=== PATIENT | male | born 1955 | race Caucasian/White ===

== ENCOUNTER → 2018-11-01 | Outpatient (CLI) | payer BC ==
[2018-10-06 15:48] VITALS: BP 120/66
[~2018-11-01] MED LIST: ACET325T9 PO; CIPR500T PO; GLIM2TAB2 PO; TAMS0.4C97 PO
--- NOTE | 2018-11-01 16:42 | RAD ---
AP view of the abdomen Clinical indications: Ureteral calculus. COMPARISON: October 05, 2018. FINDINGS: Biliary stent is unchanged in position. Small punctate bilateral radiopaque renal calculi are seen. Calcifications are seen within both sides of the anatomic pelvis which were seen previously consistent with vascular calcifications. No obstructive bowel pattern is evident. Mild fecal retention is seen throughout the colon. IMPRESSION: Bilateral renal stones. Electronically signed by: Bruno Sanchez MD (11/01/2018 4:39 PM) [facility]
== END | disposition home or self-care (01) ==
LOC: RAD 10:22
PROVIDERS: ATTEND Urology
DX: N20.2 Calculus of kidney with calculus of ureter (principal); K59.00 Constipation, unspecified
CPT/HCPCS: 74018

== ENCOUNTER 2018-11-14 01:52 | Emergency (ER) | payer BC ==
[~2018-11-14] VITALS: Ht 182.9 cm; Wt 99.8 kg
[2018-11-14 02:10] LABS: BASO # 0.1 x10^3/uL (0.0-0.2); BASO % 1 % (0-3); EOS # 0.3 x10^3/uL (0.0-0.7); EOS % 3 % (0-3); HEMATOCRIT 43.1 % (39.0-53.0); HEMOGLOBIN 15.1 g/dL (13.0-17.5); LYMPH # 3.5 x10^3/uL (1.0-4.8); LYMPH % 42 % (24-48); MEAN CORPUSCULAR HEMOGLOBIN 36 pg (25-35); MEAN CORPUSCULAR HGB CONC 35 g/dL (31-37); MEAN CORPUSCULAR VOLUME 101 fL (79-100); MONO % 12 % (0-9); NEUT # 3.5 x10^3/uL (1.8-7.7); NEUT % 42 % (31-73); PLATELET COUNT 239 x10^3/uL (140-400); RED BLOOD COUNT 4.26 x10^6/uL (4.30-5.70); RED CELL DISTRIBUTION WIDTH 13.7 % (11.5-14.5); WHITE BLOOD COUNT 8.4 x10^3/uL (4.0-11.0)
--- NOTE | 2018-11-14 02:10 | PHYS DOC ---
Past Medical History Past Medical History: Diabetes-Type II Additional Past Medical Histor: Bile Duct blocked Past Surgical History: Other Additional Past Surgical Histo: bile duct stent Alcohol Use: None Drug Use: None Adult General Chief Complaint Chief Complaint: FLANK PAIN HPI HPI 63-year-old male presents to the emergency department with complaints of left flank pain. Patient's underlying history of kidney stones last stone was about one month ago. Patient describes pain as achy, stabbing at times. Denies any fever or chills. Denies any difficulty with urination. States the pain has been fairly constant. Pain started approximately 11 PM. He denies any nausea or vomiting associated with this pain. Nothing makes his pain worse, nothing makes his pain better. Review of Systems Review of Systems Constitutional: Denies fever or chills [] Respiratory: Denies cough or shortness of breath [] Cardiovascular: No additional information not addressed in HPI [] GI: Left flank pain, no nausea, vomiting, bloody stools or diarrhea [] : Denies dysuria or hematuria [] Musculoskeletal: Left flank pain[] Integument: Denies rash or skin lesions [] Neurologic: Denies headache, focal weakness or sensory changes [] All other systems were reviewed and found to be within normal limits, except as documented in this note. Current Medications Current Medications Current Medications Medications (Trade) Dose Ordered Sig/[facility] Start Time Stop Time Status Last Admin Dose Admin Ketorolac Tromethamine (Toradol 30mg Vial) 30 mg 1X ONCE 11/14/18 02:15 11/14/18 02:16 DC 11/14/18 02:30 30 MG Ondansetron HCl (Zofran) 4 mg 1X ONCE 11/14/18 02:30 11/14/18 02:31 DC 11/14/18 02:30 4 MG Allergies Allergies Allergies Coded Allergies Type Severity Reaction Last Updated Verified No Known Drug Allergies 10/04/18 No Physical Exam Physical Exam Constitutional: Well developed, well nourished, no acute distress, non-toxic appearance. [] Cardiovascular:Heart rate regular rhythm, no murmur [] Lungs & Thorax: Bilateral breath sounds clear to auscultation [] Abdomen: Bowel sounds normal, soft, no tenderness, no masses, no pulsatile masses. [] Skin: Warm, dry, no erythema, no rash. [] Back: left CVA tenderness. [] Extremities: No tenderness, no cyanosis, no clubbing, ROM intact, no edema. [] Neurologic: Alert and oriented X 3, no focal deficits noted. [] Psychologic: Affect normal, judgement normal, mood normal. [] Current Patient Data Vital Signs Vital Signs Date Time Temp Pulse Resp B/P (MAP) Pulse Ox O2 Delivery O2 Flow Rate FiO2 11/14/18 01:55 97.5 55 17 168/81 (110) 95 Room Air 97.5 Lab Values Laboratory Tests Test 11/14/18 02:00 11/14/18 02:25 White Blood Count 8.4 x10^3/uL (4.0-11.0) Red Blood Count 4.26 x10^6/uL (4.30-5.70) L Hemoglobin 15.1 g/dL (13.0-17.5) Hematocrit 43.1 % (39.0-53.0) Mean Corpuscular Volume 101 fL (79-100) H Mean Corpuscular Hemoglobin 36 pg (25-35) H Mean Corpuscular Hemoglobin Concent 35 g/dL (31-37) Red Cell Distribution Width 13.7 % (11.5-14.5) Platelet Count 239 x10^3/uL (140-400) Neutrophils (%) (Auto) 42 % (31-73) Lymphocytes (%) (Auto) 42 % (24-48) Monocytes (%) (Auto) 12 % (0-9) H Eosinophils (%) (Auto) 3 % (0-3) Basophils (%) (Auto) 1 % (0-3) Neutrophils # (Auto) 3.5 x10^3/uL (1.8-7.7) Lymphocytes # (Auto) 3.5 x10^3/uL (1.0-4.8) Monocytes # (Auto) 1.0 x10^3/uL (0.0-1.1) Eosinophils # (Auto) 0.3 x10^3/uL (0.0-0.7) Basophils # (Auto) 0.1 x10^3/uL (0.0-0.2) Sodium Level 143 mmol/L (136-145) Potassium Level 3.8 mmol/L (3.5-5.1) Chloride Level 104 mmol/L (98-107) Carbon Dioxide Level 34 mmol/L (21-32) H Anion Gap 5 (6-14) L Blood Urea Nitrogen 21 mg/dL (8-26) Creatinine 1.2 mg/dL (0.7-1.3) Estimated GFR (Cockcroft-Gault) 61.0 BUN/Creatinine Ratio 18 (6-20) Glucose Level 120 mg/dL (70-99) H Calcium Level 9.6 mg/dL (8.5-10.1) Total Bilirubin 0.4 mg/dL (0.2-1.0) Aspartate Amino Transferase (AST) 33 U/L (15-37) Alanine Aminotransferase (ALT) 57 U/L (16-63) Alkaline Phosphatase 112 U/L (46-116) Total Protein 7.4 g/dL (6.4-8.2) Albumin 3.3 g/dL (3.4-5.0) L Albumin/Globulin Ratio 0.8 (1.0-1.7) L Urine Collection Type Unknown Urine Color Laura Urine Clarity Clear Urine pH 5.0 Urine Specific [place] 1.025 Urine Protein Negative mg/dL (NEG-TRACE) Urine Glucose (UA) 100 mg/dL (NEG) Urine Ketones (Stick) Negative mg/dL (NEG) Urine Blood Large (NEG) Urine Nitrite Negative (NEG) Urine Bilirubin Small (NEG) Urine Urobilinogen Dipstick 1.0 mg/dL (0.2 mg/dL) Urine Leukocyte Esterase Negative (NEG) Urine RBC 20-40 /HPF (0-2) Urine WBC 1-4 /HPF (0-4) Urine Squamous Epithelial Cells Occ /LPF Urine Bacteria 0 /HPF (0-FEW) Urine Mucus Slight /LPF Laboratory Tests 11/14/18 02:00 Laboratory Tests 11/14/18 02:00 EKG EKG [] Radiology/Procedures Radiology/Procedures [facility] [address] [facility] [place], [place] [id number] IMAGING REPORT Signed PATIENT: BRANDON MARTINEZ ACCOUNT: [id number] : 1955 LOCATION: ER AGE: 63 SEX: M EXAM STATUS: REG ER ORD. PHYSICIAN: PENG FRANK MD REASON: left flank pain, history of renal stones PROCEDURE: CT ABDOMEN PELVIS WO CONTRAST Examination: CT of the abdomen pelvis without contrast HISTORY: History of left flank pain COMPARISON: 10/04/2018 TECHNIQUE: Axial CT images of the abdomen pelvis were performed without contrast. Coronal and sagittal reformats are performed. Exposure: One or more of the following individualized dose reduction techniques were utilized for this examination: 1. Automated exposure control 2. Adjustment of the mA and/or kV according to patient size 3. Use of iterative reconstruction technique FINDINGS: Minimal bibasilar lung atelectasis. No evidence of free air identified in the abdomen. The evaluation of the solid organs is limited due to lack of IV contrast. The evaluation of bowel is limited due to lack of oral contrast. Cystic structure identified in the left lobe of the liver measuring 1.5 cm and 1.3 cm identified in the right lobe of the liver likely cysts, unchanged. The spleen, adrenals grossly appears unremarkable. The gallbladder is mildly distended. Biliary stent in place. There is mild prominence of the pancreatic tail. The stomach is mildly distended. The small bowel is nondilated. Feces and gas noted in the colon. Urinary bladder is mildly distended with minimal surrounding fat stranding. Mild left-sided hydronephrosis and hydroureter identified. There is 3 mm calculus identified in the distal left ureter and the left ureterovesical junction. Moderate aortic atherosclerosis. L5 spondylolysis. Mild degenerative changes lumbar spine. IMPRESSION: 1. 3 mm calculus identified in the distal left ureter at the ureterovesical junction causing mild left-sided hydronephrosis and hydroureter. 2. Urinary bladder is mildly distended with minimal surrounding fat stranding. Correlate with cystitis. 3. Prominent appearing pancreatic tail. Recommend follow-up nonemergent MRI to exclude mass. Electronically signed by: Jordi Baxter MD (11/14/2018 2:48 AM) [facility] DICTATED and SIGNED BY: JORDI BAXTER MD DATE: 11/14/18 0248 [] Course & Med Decision Making Course & Med Decision Making Pertinent Labs and Imaging studies reviewed. (See chart for details) []63-year-old male presents to the emergency department with complaints of left flank pain. Patient's underlying history of kidney stones last stone was about one month ago. Patient describes pain as achy, stabbing at times. Denies any fever or chills. Denies any difficulty with urination. States the pain has been fairly constant. Pain started approximately 11 PM. He denies any nausea or vomiting associated with this pain. Nothing makes his pain worse, nothing makes his pain better. Labs/Imaging reviewed. Toradol 30mg IV and Zofran 4mg IV x 1. Pain overall improved. CT reviewed with patient Dragon Disclaimer Dragon Disclaimer This electronic medical record was generated, in whole or in part, using a voice recognition dictation system. Departure Departure Impression: Primary Impression: Kidney stone on left side Disposition: HOME, SELF-CARE Condition: STABLE Referrals: TONI PETERSON (PCP) Patient Instructions: Kidney Stones, [id number] Additional Instructions: Tylenol as needed for pain CT shows 3mm nonobstructive kidney stone Urine without acute infection however abx provided given history of diabetes [place] and zofran provided with rx upon discharge Return to the ER with fever, worsening abdominal pain, altered mental status Scripts Hydrocodone/Apap 5-325 (NORCO 5-325 TABLET) 1 Each Tablet 1 TAB PO PRN Q6HRS PRN for PAIN, #10 TAB 0 Refills Prov: PENG FRANK MD 11/14/18 Cephalexin (KEFLEX) 500 Mg Capsule 2 CAP PO Q12HR for 5 Days, #20 CAP Prov: PENG FRANK MD 11/14/18 Ondansetron Hcl (ZOFRAN) 4 Mg Tablet 1 TAB PO PRN Q6-8HRS for nausea, #12 TAB Prov: PENG FRANK MD 11/14/18 PENG FRANK MD Nov 14, 2018 02:10
[2018-11-14] MEDS: KETOROLAC 30 MG/ML VIAL. IV ONE (02:15)
[2018-11-14 02:16] LABS: CALCIUM 9.6 mg/dL (8.5-10.1); CREATININE 1.2 mg/dL (0.7-1.3); POTASSIUM 3.8 mmol/L (3.5-5.1)
[2018-11-14 02:22] LABS: ALBUMIN 3.3 g/dL (3.4-5.0); ALBUMIN/GLOBULIN RATIO 0.8 (1.0-1.7); TOTAL BILIRUBIN 0.4 mg/dL (0.2-1.0); TOTAL PROTEIN 7.4 g/dL (6.4-8.2)
[2018-11-14] MEDS: ONDANSETRON PF 4 MG/2 ML VIAL. IV ONE (02:29)
[2018-11-14 02:32] LABS: BILIRUBIN,URINE SMALL (NEG); CLARITY,URINE CLEAR; COLOR,URINE AMBER; NITRITE,URINE NEGATIVE (NEG); PROTEIN,URINE NEGATIVE (NEG-TRACE)
[2018-11-14 02:42] LABS: BACTERIA,URINE 0 /HPF (0-FEW); RBC,URINE 20-40 /HPF (0-2); SQUAMOUS EPITHELIAL CELL,UR OCC /LPF
--- NOTE | 2018-11-14 02:51 | RAD ---
Examination: CT of the abdomen pelvis without contrast HISTORY: History of left flank pain COMPARISON: 10/04/2018 TECHNIQUE: Axial CT images of the abdomen pelvis were performed without contrast. Coronal and sagittal reformats are performed. Exposure: One or more of the following individualized dose reduction techniques were utilized for this examination: 1. Automated exposure control 2. Adjustment of the mA and/or kV according to patient size 3. Use of iterative reconstruction technique FINDINGS: Minimal bibasilar lung atelectasis. No evidence of free air identified in the abdomen. The evaluation of the solid organs is limited due to lack of IV contrast. The evaluation of bowel is limited due to lack of oral contrast. Cystic structure identified in the left lobe of the liver measuring 1.5 cm and 1.3 cm identified in the right lobe of the liver likely cysts, unchanged. The spleen, adrenals grossly appears unremarkable. The gallbladder is mildly distended. Biliary stent in place. There is mild prominence of the pancreatic tail. The stomach is mildly distended. The small bowel is nondilated. Feces and gas noted in the colon. Urinary bladder is mildly distended with minimal surrounding fat stranding. Mild left-sided hydronephrosis and hydroureter identified. There is 3 mm calculus identified in the distal left ureter and the left ureterovesical junction. Moderate aortic atherosclerosis. L5 spondylolysis. Mild degenerative changes lumbar spine. IMPRESSION: 1. 3 mm calculus identified in the distal left ureter at the ureterovesical junction causing mild left-sided hydronephrosis and hydroureter. 2. Urinary bladder is mildly distended with minimal surrounding fat stranding. Correlate with cystitis. 3. Prominent appearing pancreatic tail. Recommend follow-up nonemergent MRI to exclude mass. Electronically signed by: Jordi Baxter MD (11/14/2018 2:48 AM) [facility]
[2018-11-14 03:05] VITALS: BP 125/70
[2018-11-14] MEDS ORDERED: CEPH-264 PO (03:08)
[2018-11-14] MEDS ORDERED: HYDR-3164 PO (03:08)
[2018-11-14] MEDS ORDERED: ONDA4TAB7 PO (03:08)
== END 2018-11-14 03:30 | disposition home or self-care (01) ==
LOC: ER 01:52
DX: N20.0 Calculus of kidney (principal); E11.9 Type 2 diabetes mellitus without complications
CPT/HCPCS: 36415; 74176; 80053; 81001; 85025; 96374; 96375; 99285; J1885; J2405